=== PATIENT | male | born 1980 | race Hispanic/Latino ===

== ENCOUNTER 2025-03-14 20:33 | Emergency (ER) | payer SELFPAY ==
[~2025-03-14] VITALS: Ht 167.6 cm; Wt 72.6 kg
[2025-03-14] MEDS: HYDROcodone/APAP 5/325 1 TAB TABLET PO STA (21:03)
--- NOTE | 2025-03-14 21:33 | HMCIMG ---
Exam Type: HIP UNILAT 2-3VW RIGHT Clinical Information: pain Comparison: None Findings: The bone examination is unremarkable. No fractures or dislocations are seen. No radiopaque foreign bodies are noted. Soft tissues are preserved. IMPRESSION: Normal examination.
[2025-03-14] MEDS: ketOROlac 15MG/ML VIAL (15MG/ML) IM STA (23:29)
[2025-03-14] MEDS: morPHINE 2 MG SYG IM STA (23:31)
--- NOTE | 2025-03-14 23:48 | HMCIMG ---
CT PELVIS W/O CONTRAST HISTORY: Right hip pain COMPARISON: None TECHNIQUE: Multiple sequential axial images of the pelvis were obtained from the iliac crests through symphysis pubis. Patient was not given contrast through intravenous route. Oral contrast was not given. FINDINGS: There is oval-shaped density in the right femoral neck measuring 9.7 mm suggestive of a bone island. If clinical bone scan may be helpful. Clinical correlation is recommended. There is no acute displaced fracture or dislocation. There are normal sized pelvic and inguinal lymph nodes. Fecal material seen throughout the colon. No ascites is seen. Atherosclerotic changes are present. Pelvic sidewalls are symmetric bilaterally. Bladder is well distended without wall thickening. IMPRESSION: 1. There is oval-shaped density in the right femoral neck measuring 9.7 mm suggestive of a bone island. If clinical bone scan may be helpful. Clinical correlation is recommended. No acute displaced fracture or dislocation is seen. CT was performed with one or more following dose reduction techniques: automated exposure control, adjustment of the mA and kv according to patient's size, or use of a iterative reconstruction technique.
[2025-03-15] MEDS: methoCARBamol 500 MG TABLET PO STA (00:13)
[2025-03-15] MEDS ORDERED: KETO10TA2 PO (00:14)
[2025-03-15] MEDS ORDERED: METH100054 PO (00:14)
--- NOTE | 2025-03-15 00:14 | ERN ---
ED Note History of Present Illness Stated Complaint: RT HIP PAIN Chief Complaint: Hip Pain/Injury Time Seen by MD: 20:42 Time Seen by Midlevel: 20:50 Dictation: A 45-year-old male coming in complaining of right hip pain and upper leg pain that started yesterday. Denies any trauma. 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 Denies any redness, swelling, fevers. Denies any back pain, saddle paresthesias, weakness or numbness or tingling. No other complaints at this time. Allergies: Coded Allergies: No Known Allergies (Unverified Allergy, Unknown, 03/14/25) Past Medical History Past Medical History: No Pertinent History Surgical History: Other Surgical History Other: HERNIA Review of System Dictation Constitutional: Negative for fever,chills, and weight loss Eyes: Negative for injury, pain,redness, and discharge ENT: Negative for injury,pain or swelling Cardiovascular: Negative for chest pain, palpitations, and edema Respiratory: Negative for shortness of breath, cough, and wheezing, Abdomen/GI: Negative for abdominal pain, nausea, vomiting, diarrhea, and constipation Back: Negative for injury and pain : Negative for injury, bleeding and discharge MS/Extremity: Negative for injury and deformity, complaining of right hip pain Skin: Negative for rash, and discoloration Neuro: Negative for headache, weakness, numbness, tingling, and seizure Psych: Negative for suicide ideation, homicidal ideation, and hallucinations Review of Systems: was completed Initial Vital Sign VS Vital Signs Date Time Temp Pulse Resp B/P (MAP) Pulse Ox O2 Delivery O2 Flow Rate FiO2 03/14/25 20:35 98.8 93 20 110/66 98 Room Air 03/14/25 20:36 0 21 Physical Exam Dictation General: awake, alert, NAD Head/Face: Normocephalic, atraumatic Eyes: PERRL, EOMI, vision at baseline ENT: oral cavity clear, TMs clear, no signs of infection Neck: Trachea midline, supple, no nuchal rigidity Cardiovascular: RRR, normal S1/S2, No MRGs, no JVD Respiratory: CTAB, no respiratory distress, No rales or wheezes Abdomen: Soft, non-tender, non-distended, normal bowel sounds, no guarding or rebound. Skin: Warm, dry, normal turgor, no rash MS/Extremity: Pulses equal, no cyanosis, neurovascular intact, FROM, no palpation to the right hip area and upper thigh Neuro: COAx4, GCS 15, strength 5/5, CN 2-12 intact, normal cerebellar exam, normal gait, Psych: Normal behavior, mood, and affect normal Results (Laboratory/Radiology) X-RAY Comment: [facility] [id number] [place] [id number] IMAGING REPORT Signed PATIENT: EMMA ZELAYA MR#: [id number] : 1980 SEX: M AGE: 45 LOCATION: [facility] ORDER 46 STATUS: REG ER REPORT#: [id number] SERVICE 45 REASON: pain ORDERING PHYSICIAN: RU LAGOS NP PROCEDURE: HIP U 2V R - HIP UNILAT 2-3VW RIGHT Exam Type: HIP UNILAT 2-3VW RIGHT Clinical Information: pain Comparison: None Findings: The bone examination is unremarkable. No fractures or dislocations are seen. No radiopaque foreign bodies are noted. Soft tissues are preserved. IMPRESSION: Normal examination. DICTATED BY: AURORA GRANDE MD DATE: 03/14/252128 ELECTRONICALLY SIGNED BY: AURORA GRANDE MD DATE: 03/14/252132 CT Scan Comment: [place] [id number] [phone] IMAGING REPORT Signed PATIENT: EMMA ZELAYA MR#: [id number] : 1980 SEX: M AGE: 45 LOCATION: [facility] ORDER 46 STATUS: REG ER REPORT#: [id number] SERVICE 45 REASON: right hip pain ORDERING PHYSICIAN: RU LAGOS NP PROCEDURE: PELVIS WO - CT PELVIS W/O CONTRAST CT PELVIS W/O CONTRAST HISTORY: Right hip pain COMPARISON: None TECHNIQUE: Multiple sequential axial images of the pelvis were obtained from the iliac crests through symphysis pubis. Patient was not given contrast through intravenous route. Oral contrast was not given. FINDINGS: There is oval-shaped density in the right femoral neck measuring 9.7 mm suggestive of a bone island. If clinical bone scan may be helpful. Clinical correlation is recommended. There is no acute displaced fracture or dislocation. There are normal sized pelvic and inguinal lymph nodes. Fecal material seen throughout the colon. No ascites is seen. Atherosclerotic changes are present. Pelvic sidewalls are symmetric bilaterally. Bladder is well distended without wall thickening. IMPRESSION: 1. There is oval-shaped density in the right femoral neck measuring 9.7 mm suggestive of a bone island. If clinical bone scan may be helpful. Clinical correlation is recommended. No acute displaced fracture or dislocation is seen. CT was performed with one or more following dose reduction techniques: automated exposure control, adjustment of the mA and kv according to patient's size, or use of a iterative reconstruction technique. DICTATED BY: JOE REID MD DATE: 03/14/252340 ELECTRONICALLY SIGNED BY: JOE REID MD DATE: 03/14/252347 ED Course ED Course Orders Procedure Category Date Status Time Hip Unilat 2-3vw Right RAD 03/14/25 Resulted 20:46 Hydrocodone/Apap PHA 03/14/25 Complete 5/325 ([place] 5/325mg) 20:46 Ct Pelvis W/O Contrast CT 03/14/25 Resulted 21:46 Ketorolac PHA 03/14/25 Complete Tromethamine 15mg/Ml 22:45 Morphine 2mg Syg PHA 03/14/25 Complete (Morphine 2mg Syg) 22:45 Femur 1vw Right RAD 03/14/25 Taken 23:06 Methocarbamol PHA 03/15/25 Verified (Methocarbamol) 00:06 Current Medications Medications (Trade) Dose Ordered Sig/Mika Route PRN Reason Start Time Stop Time Status Last Admin Dose Admin Acetaminophen/ Hydrocodone Bitart (NORco 5/325MG) 1 tab ONCE STAT PO 03/14/25 20:46 03/14/25 20:48 DC 03/14/25 21:03 Ketorolac Tromethamine (toRADol) 15 mg ONCE STAT IM 03/14/25 22:45 03/14/25 22:54 DC 03/14/25 23:29 Morphine Sulfate (morPHINE 2MG SYG) 2 mg ONCE STAT IM 03/14/25 22:45 03/14/25 22:54 DC 03/14/25 23:31 Vital Signs Date Time Temp Pulse Resp B/P (MAP) Pulse Ox O2 Delivery O2 Flow Rate FiO2 03/14/25 23:25 98.6 71 18 114/65 98 Room Air* 0 21 03/14/25 22:30 98.1 75 18 121/72 97 Room Air* 0 21 03/14/25 21:30 98.2 81 18 119/65 99 Room Air* 0 21 03/14/25 20:36 98.4 78 18 110/62 98 Room Air* 0 21 03/14/25 20:35 98.8 93 20 110/66 98 Room Air Medical Decision Making MDM MDM: A 45-year-old male coming in complaining of right hip pain and upper leg pain that started yesterday. Denies any trauma. 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 Denies any redness, swelling, fevers. Denies any back pain, saddle paresthesias, weakness or numbness or tingling. No other complaints at this time. On physical exam there is pain on palpation to the hip area and upper thigh area. However there is no evidence of redness, swelling, streaking, any evidence of injury. Patient states pain is worse when he tries to lift the leg. There is no back pain, no numbness, no tingling, paresthesias. X-ray of the hip shows no acute findings. After [place], patient states still having pain. We will add CT of the hip rule out any fractures. CT of the hip shows oval shaped density in the right femoral neck measuring 9.7 mm suggestive of a bone island, no acute displaced fracture or dislocation is seen. After morphine and Toradol patient states she feels slightly better. Discussed with the patient finding. Educated he needs to follow up outpatient with PCP. We will prescribe anti-inflammatory and muscle relaxer of the seems to be more musculoskeletal. Patient verbalized understanding, answered all questions. Differential diagnosis: Pathological fracture, hairline fracture, musculoskeletal pain, arthritis Rationale: Tests considered and ordered secondary to shared decision making include: Previous outside records reviewed: Old ER visits. Risk of complication and/or morbidity or mortality of patient management: None Medications-Per medication reconciliation Need for hospitalization: Patient does not meet criteria for hospitalization. Need for emergency major/minor surgery: No There are no social concerns with this patient. Prescription drug management Prescriptions will include symptomatic care Patient's prior external medical records from other ER visits were reviewed by me as indicated. Prior testing and results from previous visits were reviewed. Prior tests were taken into account with medical decision making and resource utilization, independent historian/historians were used to obtain complete medical history. I independently interpreted the test that were performed, results were reviewed by me and considered findings on radiology if ordered. Medical management and examination interpretation discussions were had by me with other qualified healthcare professionals as indicated for the patient's care. DX & DISP Disposition: Discharge Departure Impression: Primary Impression: Hip pain, acute Additional Impression: Hip pain, right Condition: Stable Scripts Methocarbamol (Methocarbamol) 1,000 Mg Tablet 1000 MG PO QID PRN for PAIN for 3 Days, #12 TAB Prov: UR LAGOS [employer] 03/15/25 Ketorolac Tromethamine (Ketorolac Tromethamine) 10 Mg Tablet 1 TAB PO Q6HPRN PRN for pain for 5 Days, #20 TAB 0 Refills Prov: RU LAGOS [employer] 03/15/25 Additional Instructions: Follow up with your PCP outpatient. Take medications prescribed. Return to the hospital if you have worsening any pain. Referrals: SELF,REFERRAL (PCP) Time of Disposition: 00:12 I have reviewed the case, and I agree with, Diagnosis and Plan RU LAGOS NP Mar 15, 2025 00:14
[2025-03-15 00:15] VITALS: BP 119/68; PULSE 69; RESP 17; TEMP 98.2; O2SAT 97
--- NOTE | 2025-03-15 08:42 | HMCIMG ---
Exam Type: FEMUR 1VW RIGHT Clinical Information: pain Comparison: None Findings: The bone examination is unremarkable. No fractures or dislocations are seen. No radiopaque foreign bodies are noted. Soft tissues are preserved. IMPRESSION: Normal examination.
== END 2025-03-15 00:19 | disposition home or self-care (01) ==
LOC: EDH 20:33
DX: M25.551 Pain in right hip (principal)
CPT/HCPCS: 99285; 72192; 73502; 73551; 96372 ×2; J1885; J2270